=== PATIENT | female | born 2000 | race African-American/Black ===

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

== ENCOUNTER 2021-02-11 01:25 | Emergency (ER) | payer MEDICAID ==
[~2021-02-11] VITALS: Ht 157.5 cm; Wt 68.1 kg
[2021-02-11] MEDS ORDERED: CETI10CA PO (01:35)
[2021-02-11] MEDS ORDERED: DULO20CA45 PO (01:35)
[2021-02-11 01:48] LABS: HCG UR SG 1.033 (1.003-1.030)
[2021-02-11 01:49] LABS: MICROSCOPIC INDICATED
[2021-02-11] MEDS ORDERED: CEFTRIAXONE 1,000 MG ONE (01:57)
[2021-02-11] MEDS ORDERED: DOXYCYCLINE 100MG TABLET ONE (01:57)
[2021-02-11] MEDS ORDERED: DOXYCYCLINE 100MG TABLET PO ONE (02:00)
[2021-02-11] MEDS ORDERED: CEFTRIAXONE 1,000 MG IM ONE (02:00)
[2021-02-11 02:19] VITALS: BP 137/94
--- NOTE | 2021-02-11 02:20 | NUR ---
BRAD MIGUEL AT , DISCUSSING POC AND DC INSTRUCTIONS. PT TO BE DC'D SOON. NAD, RESTING ON ERIC, VSS, NO CHANGE IN CONDITION. WCTM.
--- NOTE | 2021-02-11 02:54 | NUR ---
Patient given discharge instructions and they have confirmed that they understand the instructions. Patient ambulatory with steady gait. NAD, all questions answered appropriately, denies additional needs at this time. No personal belongings left in room after discharge.
== END 2021-02-11 02:55 | disposition home or self-care (01) ==
LOC: ED 02:04
DX: Z20.2 Contact with and (suspected) exposure to infections with a predominantly sexual mode of transmission (principal); Z90.89 Acquired absence of other organs
CPT/HCPCS: 81001; 81025; 87086; 87491; 87591; 96372; 99283; J0696